=== PATIENT | male | born 1960 | race Hispanic/Latino ===

== ENCOUNTER 2020-01-16 20:57 | Emergency (ER) | payer SELFPAY ==
--- NOTE | 2020-01-16 21:00 | Emergency Department Report ---
Blank Doc - Documentation Documentation: 59-year-old male that presents with urinary difficulty. This initial assessment/diagnostic orders/clinical plan/treatment(s) is/are subject to change based on patient's health status, clinical progression and re- assessment by fellow clinical providers in the ED. Further treatment and workup at subsequent clinical providers discretion. Patient/guardians urged not to elope from the ED as their condition may be serious if not clinically assessed and managed. Initial orders include: 1- Patient sent to MAIN ED for further evaluation and treatment 2- labs 3- UA
[2020-01-16 21:20] LABS: Basophils # (Auto) 0.1 K/mm3 (0.0-0.1); Eosinophils # (Auto) 0.2 K/mm3 (0.0-0.4); Eosinophils % (Auto) 1.2 % (0.0-4.3); Hematocrit 38.5 % (35.5-45.6); Hemoglobin 12.8 gm/dl (11.8-15.2); Lymphocytes # (Auto) 3.6 K/mm3 (1.2-5.4); Lymphocytes % (Auto) 25.5 % (13.4-35.0); Mean Corpuscular HGB Conc 33 % (32-34); Mean Corpuscular Volume 89 fl (84-94); Monocytes # (Auto) 1.1 K/mm3 (0.0-0.8); Monocytes % (Auto) 7.7 % (0.0-7.3); Platelet Count 355 K/mm3 (140-440); Red Blood Count 4.33 M/mm3 (3.65-5.03); Red Cell Distribution Width 14.1 % (13.2-15.2)
[2020-01-16 21:36] LABS: Bacteria,Urine 1+ /HPF (Negative); Bilirubin,Urine NEG (Negative); Blood,Urine NEG (Negative); Color,Urine Straw (Yellow); Mucus,Urine FEW /HPF; Protein,Urine <15 mg/dL mg/dL (Negative); Urobilinogen,Urine < 2.0 mg/dL (<2.0)
[2020-01-16 21:40] VITALS: BP 132/87
[2020-01-16 21:41] LABS: Blood Urea Nitrogen 15 mg/dL (9-20); Calcium 9.5 mg/dL (8.4-10.2); Hemolysis Index 10
[2020-01-16 21:44] LABS: BUN/Creatinine Ratio 21
--- NOTE | 2020-01-16 22:06 | Emergency Department Report ---
ED Male HPI - General Chief complaint: Urogenital-Male Stated complaint: SWOLLEN PROSTATE Time Seen by Provider: 01/16/20 20:59 Source: patient Mode of arrival: Ambulatory Limitations: No Limitations - History of Present Illness Initial comments: CC: "I am pretty sure that I have a urinary tract injection, maybe a swollen prostate." HPI: This is a 59-year-old male with history of diabetes mellitus, hypothyroidism who presents with several weeks of difficulty with urination. He has noticed cloudy malodorous urine as well as sore scrotum and testicles. He is concerned for epididymitis after [employer] web search. He denies fever. Denies back pain. Denies abdominal pain. Denies vomiting. He is able to empty his bladder but with difficulty. He feels that since his diabetes has been uncontrolled for the past 2 years he will be prone to UTI. He has been without insurance for the past 2 years since he lost his job. He formally took metformin Victoza and Synthroid. MD Complaint: testicle pain, testicle swelling, dysuria, other (Malodorous urine difficulty urinating) -: Gradual, week(s) (Several weeks) Location: right testicle, left testicle Radiation: none Severity: mild Quality: aching Consistency: constant Improves with: none Worsens with: urination other (Malodorous urine) - Related Data Previous Rx's Medication Instructions Recorded Last Taken Type Tamsulosin [Flomax] 0.4 mg PO QDAY 30 Days #30 cap 01/16/20 Unknown Rx cephALEXin [Keflex] 500 mg PO Q8HR 10 Days #30 cap 01/16/20 Unknown Rx metFORMIN [Glucophage] 500 mg PO BID 30 Days #60 tablet 01/16/20 Unknown Rx Allergies Allergy/AdvReac Type Severity Reaction Status Date / Time No Known Allergies Allergy Unverified 01/16/20 21:41 ED Review of Systems ROS: Stated complaint: SWOLLEN PROSTATE Other details as noted in HPI Comment: All other systems reviewed and negative Constitutional: denies: chills, fever, malaise Respiratory: denies: cough Cardiovascular: denies: chest pain Gastrointestinal: denies: abdominal pain, nausea, vomiting Genitourinary: urgency, dysuria, frequency, testicular pain ED Past Medical Hx - Past Medical History Previous Medical History?: Yes Hx Diabetes: Yes Additional medical history: Thyroid disease - Social History Smoking Status: Never Smoker Substance Use Type: None - Medications Home Medications: Home Medications Medication Instructions Recorded Confirmed Last Taken Type Tamsulosin [Flomax] 0.4 mg PO QDAY 30 Days #30 cap 01/16/20 Unknown Rx cephALEXin [Keflex] 500 mg PO Q8HR 10 Days #30 cap 01/16/20 Unknown Rx metFORMIN [Glucophage] 500 mg PO BID 30 Days #60 tablet 01/16/20 Unknown Rx ED Physical Exam - General Limitations: No Limitations General appearance: alert, in no apparent distress - Head Head exam: Present: atraumatic, normocephalic - Eye Eye exam: Present: normal appearance - ENT ENT exam: Present: mucous membranes moist - Neck Neck exam: Present: normal inspection, full ROM - Respiratory Respiratory exam: Present: normal lung sounds bilaterally. Absent: respiratory distress, wheezes, rales, rhonchi - Cardiovascular Cardiovascular Exam: Present: regular rate, normal rhythm, normal heart sounds. Absent: systolic murmur, diastolic murmur, rubs, gallop - GI/Abdominal GI/Abdominal exam: Present: soft, normal bowel sounds. Absent: distended, tenderness, guarding, rebound - exam: Present: other (Deferred according to patient's discretion) - Extremities Exam Extremities exam: Present: normal inspection - Back Exam Back exam: Present: normal inspection - Neurological Exam Neurological exam: Present: alert, oriented X3 - Psychiatric Psychiatric exam: Present: normal affect, normal mood - Skin Skin exam: Present: warm, dry, intact, normal color. Absent: rash ED Course Vital Signs 01/16/20 01/16/20 21:18 21:38 Temperature 97.8 F 99.1 F Pulse Rate 83 67 Respiratory 18 16 Rate Blood Pressure 140/87 132/87 [Right] O2 Sat by Pulse 96 99 Oximetry ED Medical Decision Making - Lab Data Result diagrams: 01/16/20 21:05 01/16/20 21:05 Laboratory Results - last 24 hr 01/16/20 01/16/20 01/16/20 21:05 21:05 21:14 WBC 14.1 H RBC 4.33 Hgb 12.8 Hct 38.5 MCV 89 MCH 30 MCHC 33 RDW 14.1 Plt Count 355 Lymph % (Auto) 25.5 [place] % (Auto) 7.7 H Eos % (Auto) 1.2 Baso % (Auto) 1.0 Lymph # 3.6 [place] # 1.1 H Eos # 0.2 Baso # 0.1 Seg Neutrophils % 64.6 Seg Neutrophils # 9.1 H Sodium 128 L Potassium 4.1 Chloride 88.1 L Carbon Dioxide 22 Anion Gap 22 BUN 15 Creatinine 0.7 L Estimated GFR > 60 BUN/Creatinine Ratio 21 Glucose 562 H* Calcium 9.5 Urine Color Straw Urine Turbidity Slightly-cloudy Urine pH 5.0 Ur Specific [place] 1.027 Urine Protein <15 mg/dl Urine Glucose (UA) >=500 Urine Ketones Neg Urine Blood Neg Urine Nitrite Neg Urine Bilirubin Neg Urine Urobilinogen < 2.0 Ur Leukocyte Esterase Mod Urine WBC (Auto) 81.0 H Urine RBC (Auto) 7.0 U Epithel Cells (Auto) < 1.0 Urine Bacteria (Auto) 1+ Urine Mucus Few - Medical Decision Making Mr. Mendosa presents with testicular pain and swelling as well as malodorous urine. He has had urinary hesitation for several weeks. Differential diagnosis includes prostatitis epididymitis, Diagnosis: complicated UTI Patient declined further treatment for acute hyperglycemia and epididymitis such as IV fluid, bladder scan and scrotal ultrasound. He stated that considering his lack of healthcare insurance he wanted conservative therapy. He has nontoxic. I do not suspect sepsis. I do not suspect acute urinary retention. No evidence of DKA. Patient appears well. He will be prescribed cephalexin for the next 10 days. Also prescribed Flomax and metformin. Critical care attestation.: If time is entered above; I have spent that time in minutes in the direct care of this critically ill patient, excluding procedure time. ED Disposition Clinical Impression: Complicated UTI (urinary tract infection), Acute hyperglycemia Disposition: DC-01 TO HOME OR SELFCARE Is pt being admited?: No Does the pt Need Aspirin: No Condition: Stable Instructions: Epididymitis (ED) Prescriptions: Tamsulosin [Flomax] 0.4 mg PO QDAY 30 Days #30 cap metFORMIN [Glucophage] 500 mg PO BID 30 Days #60 tablet cephALEXin [Keflex] 500 mg PO Q8HR 10 Days #30 cap Referrals: ROSALIA BORRERO MD [Staff Physician] - 3-5 Days
== END 2020-01-16 22:46 | disposition home or self-care (01) ==
LOC: ED 20:57
DX: N39.0 Urinary tract infection, site not specified (principal); E11.65 Type 2 diabetes mellitus with hyperglycemia; Z79.899 Other long term (current) drug therapy
CPT/HCPCS: 36415; 80048; 81001; 85025; 87076; 87086; 87186; 99283

== ENCOUNTER 2020-01-26 02:06 | Emergency (ER) | payer SELFPAY ==
[2020-01-26 03:05] LABS: Bacteria,Urine 1+ /HPF (Negative); Bilirubin,Urine NEG (Negative); Blood,Urine LG (Negative); Color,Urine Amber (Yellow); Mucus,Urine FEW /HPF; Protein,Urine <15 mg/dL mg/dL (Negative)
[2020-01-26 03:06] LABS: RBC,Urine > 182.0 /HPF (0.0-6.0)
[2020-01-26] MEDS ORDERED: SODIUM CHLORIDE 0.9% 1000 ML 1,000 ML IV ONE (03:58)
[2020-01-26] MEDS ORDERED: cefTRIAXone/NS 1 GM/50 ML 1 GM/50 ML BAG IV ONE (03:58)
[2020-01-26 03:59] VITALS: BP 108/57
[2020-01-26] MEDS ORDERED: KETOROLAC 30 MG/1 ML INJ IV ONE (04:25)
[2020-01-26] MEDS ORDERED: KETOROLAC 30 MG/1 ML INJ ONE (04:27)
[2020-01-26 04:36] LABS: Basophils # (Auto) 0.1 K/mm3 (0.0-0.1); Basophils % (Auto) 0.5 % (0.0-1.8); Eosinophils # (Auto) 0.3 K/mm3 (0.0-0.4); Eosinophils % (Auto) 2.2 % (0.0-4.3); Hematocrit 37.1 % (35.5-45.6); Hemoglobin 11.9 gm/dl (11.8-15.2); Lymphocytes # (Auto) 2.2 K/mm3 (1.2-5.4); Lymphocytes % (Auto) 16.9 % (13.4-35.0); Mean Corpuscular HGB Conc 32 % (32-34); Mean Corpuscular Volume 89 fl (84-94); Monocytes # (Auto) 1.1 K/mm3 (0.0-0.8); Monocytes % (Auto) 8.1 % (0.0-7.3); Platelet Count 352 K/mm3 (140-440); Red Blood Count 4.19 M/mm3 (3.65-5.03)
[2020-01-26 04:55] LABS: Alanine Aminotransferase 14 units/L (7-56); Albumin 3.7 g/dL (3.9-5); Blood Urea Nitrogen 8 mg/dL (9-20); Calcium 9.3 mg/dL (8.4-10.2); Hemolysis Index 2
--- NOTE | 2020-01-26 04:59 | Cat Scan Report ---
CT abdomen pelvis wo con INDICATION: Flank pain. TECHNIQUE: All CT scans at this location are performed using the following dose modulation technique: Automated exposure control. CONTRAST: None. COMPARISON: None available. CT ABDOMEN: The parenchymal organs are unremarkable in appearance. Negative for abdominal mass, fluid or inflammation. The bowel is not dilated or thickened. Moderate elevation is seen at the right mel[place] diaphragm. CT PELVIS: Negative for distal ureteral stone, pelvic fluid collection or inflammation. The appendix is normal. Irregular enlargement is seen at the inferior prostate. A small node is seen at the right external il iac chain with a maximal short axis diameter of 7 mm. No suspicious bony lesion. IMPRESSION: 1. Negative for renal stone or obstruction. 2. Irregular enlargement of the prostate was small right pelvic node. Signer Name: Luis Wiseman MD Signed: 01/26/2020 4:55 AM Workstation Name: [id number]
--- NOTE | 2020-01-26 05:18 | Emergency Department Report ---
ED General Adult HPI - General Chief complaint: Rectal Pain Stated complaint: RECTAL PAIN Source: patient Mode of arrival: Ambulatory Limitations: No Limitations - History of Present Illness Initial comments: This is a 59-year-old male with history of diabetes mellitus, hypothyroidism , recent dx of complicated UTI, who is finishing keflex and flomax po for past week, who presents with rectal pain and pressure. He denies melena, no fever no chills, he is tolerating po , and making normal stools, pt is on metformin for DMII but has not taken it in the past year. He adamant that he will not agree to admission for any reason, he states medication only. pt also denies dysuria, frequency, or urgency. Pt is voiding without difficulty. Denies back pain. Denies abdominal pain. Denies vomiting. He is able to empty his bladder but with difficulty. pain is currently at level 3/10 soreness. Pt has not followed up with pcp. Onset/Timin -: week(s) Location: pelvis Severity scale (0 -10): 3 Quality: aching Consistency: intermittent Improves with: none Worsens with: none Associated Symptoms: denies: fever/chills, nausea/vomiting Treatments Prior to Arrival: none - Related Data Previous Rx's Medication Instructions Recorded Last Taken Type Tamsulosin [Flomax] 0.4 mg PO QDAY 30 Days #30 cap 01/16/20 Unknown Rx cephALEXin [Keflex] 500 mg PO Q8HR 10 Days #30 cap 01/16/20 Unknown Rx metFORMIN [Glucophage] 500 mg PO BID 30 Days #60 tablet 01/16/20 Unknown Rx levoFLOXacin [Levaquin TAB] 500 mg PO QDAY #7 tablet 01/26/20 Unknown Rx traMADoL [Ultram] 50 mg PO Q6HR PRN #12 tablet 01/26/20 Unknown Rx Allergies Allergy/AdvReac Type Severity Reaction Status Date / Time No Known Allergies Allergy Verified 01/26/20 04:27 ED Review of Systems ROS: Stated complaint: RECTAL PAIN Other details as noted in HPI Constitutional: denies: chills, fever Eyes: denies: eye pain, eye discharge, vision change ENT: denies: ear pain, throat pain Respiratory: denies: cough, shortness of breath, wheezing Cardiovascular: denies: chest pain, palpitations Endocrine: no symptoms reported Gastrointestinal: other (pelvic pain ). denies: abdominal pain, nausea, vomiting, diarrhea, constipation, melena Genitourinary: denies: urgency, dysuria, frequency, hematuria, discharge, testicular pain, testicular mass Musculoskeletal: denies: back pain, joint swelling, arthralgia Skin: denies: rash, lesions Neurological: denies: headache, weakness, paresthesias Psychiatric: denies: anxiety, depression Hematological/Lymphatic: denies: easy bleeding, easy bruising ED Past Medical Hx - Past Medical History Previous Medical History?: Yes Hx Diabetes: Yes Additional medical history: Thyroid disease - Surgical History Past Surgical History?: No - Social History Smoking Status: Never Smoker Substance Use Type: None - Medications Home Medications: Home Medications Medication Instructions Recorded Confirmed Last Taken Type Tamsulosin [Flomax] 0.4 mg PO QDAY 30 Days #30 cap 01/16/20 Unknown Rx cephALEXin [Keflex] 500 mg PO Q8HR 10 Days #30 cap 01/16/20 Unknown Rx metFORMIN [Glucophage] 500 mg PO BID 30 Days #60 tablet 01/16/20 Unknown Rx levoFLOXacin [Levaquin TAB] 500 mg PO QDAY #7 tablet 01/26/20 Unknown Rx traMADoL [Ultram] 50 mg PO Q6HR PRN #12 tablet 01/26/20 Unknown Rx ED Physical Exam - General Limitations: No Limitations General appearance: alert, in no apparent distress - Head Head exam: Present: atraumatic, normocephalic - Eye Eye exam: Present: normal appearance - ENT ENT exam: Present: mucous membranes moist - Neck Neck exam: Present: normal inspection - Respiratory Respiratory exam: Present: normal lung sounds bilaterally. Absent: respiratory distress, wheezes, stridor - Cardiovascular Cardiovascular Exam: Present: regular rate, normal rhythm, normal heart sounds. Absent: systolic murmur, diastolic murmur, rubs, gallop - GI/Abdominal GI/Abdominal exam: Present: soft, normal bowel sounds. Absent: distended, tenderness, guarding, rebound, rigid, bruit, hernia - Rectal Rectal exam: Present: deferred - Extremities Exam Extremities exam: Present: normal inspection - Back Exam Back exam: Present: normal inspection, full ROM. Absent: tenderness, CVA tenderness (R), CVA tenderness (L) - Neurological Exam Neurological exam: Present: alert, oriented X3, CN II-XII intact, normal gait, reflexes normal. Absent: motor sensory deficit - Psychiatric Psychiatric exam: Present: normal affect, normal mood - Skin Skin exam: Present: warm, dry, intact, normal color. Absent: rash ED Course Vital Signs 01/26/20 01/26/20 02:23 03:58 Temperature 98.3 F 98.3 F Pulse Rate 71 54 L Respiratory 18 16 Rate Blood Pressure 123/69 Blood Pressure 108/57 [Left] O2 Sat by Pulse 97 98 Oximetry ED Medical Decision Making - Lab Data Result diagrams: 01/26/20 04:21 01/26/20 04:21 - Radiology Data Radiology results: report reviewed, image reviewed Findings Reporting MD: Luis Wiseman Dictation Time: January 26, 2020 03:55 Garment Finisher: Not available Train Dispatcher Date: CT abdomen pelvis wo con INDICATION: Flank pain. TECHNIQUE: All CT scans at this location are performed using the following dose modulation technique: Automated exposure control. CONTRAST: None. COMPARISON: None available. CT ABDOMEN: The parenchymal organs are unremarkable in appearance. Negative for abdominal mass, fluid or inflammation. The bowel is not dilated or thickened. Moderate elevation is seen at the right hemidiaphragm. CT PELVIS: Negative for distal ureteral stone, pelvic fluid collection or inflammation. The appendix is normal. Irregular enlargement is seen at the inferior prostate. A small node is seen at the right external iliac chain with a maximal short axis diameter of 7 mm. No suspicious bony lesion. IMPRESSION: 1. Negative for renal stone or obstruction. 2. Irregular enlargement of the prostate was small right pelvic node. Signer Name: Luis Wiseman MD Signed: 01/26/2020 3:55 AM Workstation Name: [id number] - Medical Decision Making CT abdomen and pelvis no mass no stones no obstruction, mildly irregular prostate, UA positive for leukocytes, WBCs, RBCs. Symptoms are improved after Rocephin IV given in ED, normal saline 1 L IV, blood sugar is improved. Plan DC with prescription for Levaquin for treatment of prostatitis, complicated UTI, patient given referral to urology, will complete Flomax and follow-up with urology in 2 to 3 days. Patient is currently voiding without difficulty there is no nausea vomiting there is no diarrhea there is no rectal bleeding no melena, patient declined prostate exam, noted culture and sensitivity from 01/16/2020 bacteria is Levaquin sensitive. Patient DC to home in stable condition at this time Critical care attestation.: If time is entered above; I have spent that time in minutes in the direct care of this critically ill patient, excluding procedure time. ED Disposition Clinical Impression: Complicated UTI (urinary tract infection) Prostatitis Qualifiers: Prostatitis type: unspecified Qualified Code(s): N41.9 - Inflammatory disease of prostate, unspecified Disposition: DC-01 TO HOME OR SELFCARE Is pt being admited?: No Does the pt Need Aspirin: No Condition: Stable Instructions: Prostatitis (ED), Urinary Tract Infection in Men (ED) Prescriptions: levoFLOXacin [Levaquin TAB] 500 mg PO QDAY #7 tablet traMADoL [Ultram] 50 mg PO Q6HR PRN #12 tablet PRN Reason: Pain Referrals: ROSANNA MARMOLEJO MD [Staff Physician] - 3-5 Days Forms: Work/School Release Form(ED)
[2020-01-26 05:43] LABS: BUN/Creatinine Ratio 11
== END 2020-01-26 05:45 | disposition home or self-care (01) ==
LOC: ED 02:06
DX: N41.9 Inflammatory disease of prostate, unspecified (principal); N39.0 Urinary tract infection, site not specified; E03.9 Hypothyroidism, unspecified; E11.9 Type 2 diabetes mellitus without complications; Z79.899 Other long term (current) drug therapy
CPT/HCPCS: 36415; 74176; 80053; 81001; 82140; 85025; 87040; 87086; 96365; 96375; 99284; J0696; J1885; J7030

== ENCOUNTER 2020-07-27 15:12 | Emergency (ER) | payer BC ==
--- NOTE | 2020-07-27 15:45 | Event Note ---
ED Screening Note Date of service: 07/27/20 Time: 15:44 ED Screening Note: Patient complains of abdominal pain, chest pain, shortness of breath x8 months Patient states he has seen multiple specialist and is scheduled to see a GI specialist in 1 month, however he cannot wait to see them because his symptoms are worsening States history of elevated liver enzymes This initial assessment/diagnostic orders/clinical plan/treatment(s) is/are subject to change based on patients health status, clinical progression and re- assessment by fellow clinical providers in the ED. Further treatment and workup at subsequent clinical providers discretion. Patient/guardian urged not to elope from the ED as their condition may be serious if not clinically assessed and managed. Initial orders include: Labs EKG Chest x-ray
[2020-07-27 16:10] LABS: Basophils # (Auto) 0.1 K/mm3 (0.0-0.1); Basophils % (Auto) 1.1 % (0.0-1.8); Eosinophils # (Auto) 0.2 K/mm3 (0.0-0.4); Eosinophils % (Auto) 1.9 % (0.0-4.3); Hematocrit 40.7 % (35.5-45.6); Hemoglobin 14.2 gm/dl (11.8-15.2); Lymphocytes # (Auto) 3.3 K/mm3 (1.2-5.4); Lymphocytes % (Auto) 39.3 % (13.4-35.0); Mean Corpuscular HGB Conc 35 % (32-34); Mean Corpuscular Volume 89 fl (84-94); Monocytes # (Auto) 0.6 K/mm3 (0.0-0.8); Monocytes % (Auto) 7.7 % (0.0-7.3); Platelet Count 334 K/mm3 (140-440); Red Blood Count 4.57 M/mm3 (3.65-5.03); Red Cell Distribution Width 13.9 % (13.2-15.2)
--- NOTE | 2020-07-27 16:19 | XRay Report ---
CHEST 2 VIEWS INDICATION / CLINICAL INFORMATION: Chest pain/shortness of breath. Abdominal pain for 8 months. COMPARISON: None available. FINDINGS: SUPPORT DEVICES: None. HEART / MEDIASTINUM: The heart size and pulmonary vasculature are normal. LUNGS / PLEURA: No significant pulmonary or pleural abnormality. No pneumothorax. ADDITIONAL FINDINGS: There is mild thoracolumbar scoliosis. There is a left nipple piercing. The visu alized upper abdomen is unremarkable. IMPRESSION: No acute findings. Signer Name: Favian Magallon MD Signed: 07/27/2020 4:14 PM Workstation Name: [id number]
[2020-07-27 16:25] LABS: Alanine Aminotransferase 23 units/L (7-56); Albumin 4.3 g/dL (3.9-5); Blood Urea Nitrogen 16 mg/dL (9-20); Calcium 9.9 mg/dL (8.4-10.2); Hemolysis Index 2
[2020-07-27 16:27] LABS: BUN/Creatinine Ratio 23
[2020-07-27 16:42] LABS: Bilirubin,Urine NEG (Negative); Blood,Urine NEG (Negative); Color,Urine Yellow (Yellow); Hyaline Casts,Urine 3 /LPF; Mucus,Urine FEW /HPF; Protein,Urine <15 mg/dL mg/dL (Negative)
[2020-07-27] MEDS ORDERED: SODIUM CHLORIDE 0.9% 1000 ML 1,000 ML IV ONE (22:09)
[2020-07-27] MEDS ORDERED: ONDANSETRON 4 MG/2 ML INJ IV ONE (22:09)
--- NOTE | 2020-07-27 23:21 | Cat Scan Report ---
CT abdomen pelvis w con INDICATION: Patient complains of L.L.Q. abdominal pain. COMPARISON: 01/26/2020 TECHNIQUE: Abdominal and pelvic CT exam performed. All CT scans at this location are performed using CT dose reduction for ALARA by means of automated exposure control. FINDINGS: CT ABDOMEN and PELVIS: Lung Bases: No significant abnormality. Liver: No significant abnormality. Biliary: No significant abnormality. Spleen: No significant abnormality. Pancreas: No significant abnormality. Adrenals: No significant abnormality. Kidneys: No significant abnormality. Lymphatics: No lymphadenopathy. Vasculature: Mild aortic atherosclerosis. No aneurysm. Bowel: No significant abnormality. Normal appendix. Pelvis: Prostate appears unchanged.. Osseous Structures: No aggressive osseous lesion. Mild rightward curvature of the spine. 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 Additional Findings: None IMPRESSION: 1. No of acute abnormality of the abdomen or pelvis. Signer Name: Reed Mcgee MD Signed: 07/27/2020 11:16 PM Workstation Name: [id number]
--- NOTE | 2020-07-27 23:47 | Emergency Department Report ---
ED General Adult HPI - General Chief complaint: Abdominal Pain Stated complaint: abd PAINS Time Seen by Provider: 07/27/20 15:43 Source: patient Mode of arrival: Ambulatory Limitations: No Limitations - History of Present Illness Initial comments: The patient presents to the emergency department the chief complaint of abdominal pain has been present for the last 8 months but has become worse over the last 1 day. Patient describes the pain is sharp in nature and states that he has had nausea but no vomiting. Patient states he has an appointment with his GI doctor in 1 month. Patient denies any prior abdominal surgeries. Patient has no chest pain, shortness breath, or headache -: month(s) Location: abdomen Radiation: non-radiation Severity scale (0 -10): 6 Quality: sharp Consistency: constant Improves with: none Worsens with: none Associated Symptoms: denies other symptoms Treatments Prior to Arrival: none - Related Data Previous Rx's Medication Instructions Recorded Last Taken Type Tamsulosin [Flomax] 0.4 mg PO QDAY 30 Days #30 cap 01/16/20 Unknown Rx cephALEXin [Keflex] 500 mg PO Q8HR 10 Days #30 cap 01/16/20 Unknown Rx metFORMIN [Glucophage] 500 mg PO BID 30 Days #60 tablet 01/16/20 Unknown Rx levoFLOXacin [Levaquin TAB] 500 mg PO QDAY #7 tablet 01/26/20 Unknown Rx traMADoL [Ultram] 50 mg PO Q6HR PRN #12 tablet 01/26/20 Unknown Rx HYDROcodone/APAP 5-325 [[place] 1 each PO Q6HR PRN #12 tablet 07/28/20 Unknown Rx 5/325] Ondansetron [Zofran Odt] 4 mg PO Q4HR PRN #20 tab.rapdis 07/28/20 Unknown Rx Allergies Allergy/AdvReac Type Severity Reaction Status Date / Time No Known Allergies Allergy Verified 07/27/20 15:42 ED Review of Systems ROS: Stated complaint: abd PAINS Other details as noted in HPI Comment: All other systems reviewed and negative Constitutional: denies: chills, fever Eyes: denies: eye pain, eye discharge, vision change ENT: denies: ear pain, throat pain Respiratory: denies: cough, shortness of breath, wheezing Cardiovascular: denies: chest pain, palpitations Endocrine: no symptoms reported Gastrointestinal: abdominal pain. denies: nausea, diarrhea Genitourinary: denies: urgency, dysuria Musculoskeletal: denies: back pain, joint swelling, arthralgia Skin: denies: rash, lesions Neurological: denies: headache, weakness, paresthesias Psychiatric: denies: anxiety, depression Hematological/Lymphatic: denies: easy bleeding, easy bruising ED Past Medical Hx - Past Medical History Hx Diabetes: Yes Additional medical history: Thyroid disease - Social History Smoking Status: Never Smoker Substance Use Type: None - Medications Home Medications: Home Medications Medication Instructions Recorded Confirmed Last Taken Type Tamsulosin [Flomax] 0.4 mg PO QDAY 30 Days #30 cap 01/16/20 Unknown Rx cephALEXin [Keflex] 500 mg PO Q8HR 10 Days #30 cap 01/16/20 Unknown Rx metFORMIN [Glucophage] 500 mg PO BID 30 Days #60 tablet 01/16/20 Unknown Rx levoFLOXacin [Levaquin TAB] 500 mg PO QDAY #7 tablet 01/26/20 Unknown Rx traMADoL [Ultram] 50 mg PO Q6HR PRN #12 tablet 01/26/20 Unknown Rx HYDROcodone/APAP 5-325 [[place] 1 each PO Q6HR PRN #12 tablet 07/28/20 Unknown Rx 5/325] Ondansetron [Zofran Odt] 4 mg PO Q4HR PRN #20 tab.rapdis 07/28/20 Unknown Rx ED Physical Exam - General Limitations: No Limitations General appearance: alert, in no apparent distress - Head Head exam: Present: atraumatic, normocephalic - Eye Eye exam: Present: normal appearance, PERRL - ENT ENT exam: Present: mucous membranes moist - Neck Neck exam: Present: normal inspection - Respiratory Respiratory exam: Present: normal lung sounds bilaterally. Absent: respiratory distress - Cardiovascular Cardiovascular Exam: Present: regular rate, normal rhythm. Absent: systolic murmur, diastolic murmur, rubs, gallop - GI/Abdominal GI/Abdominal exam: Present: soft, tenderness (Diffusely tender but more exquisitely tender in the left lower quadrant), normal bowel sounds. Absent: distended - Rectal Rectal exam: Present: deferred - Extremities Exam Extremities exam: Present: normal inspection - Back Exam Back exam: Present: normal inspection - Neurological Exam Neurological exam: Present: alert, oriented X3, CN II-XII intact. Absent: motor sensory deficit - Psychiatric Psychiatric exam: Present: normal affect, normal mood - Skin Skin exam: Present: warm, dry, intact, normal color. Absent: rash ED Course Vital Signs 07/27/20 07/27/20 07/27/20 15:42 23:12 23:15 Temperature 97.8 F Pulse Rate 98 H 70 68 Respiratory 24 12 10 L Rate Blood Pressure 114/85 121/85 O2 Sat by Pulse 98 100 100 Oximetry ED Medical Decision Making - Lab Data Result diagrams: 07/27/20 15:51 07/27/20 15:51 Lab Results 07/27/20 07/27/20 07/27/20 Range/Units 15:51 15:51 15:51 WBC 8.3 (4.5-11.0) K/mm3 RBC 4.57 (3.65-5.03) M/mm3 Hgb 14.2 (11.8-15.2) gm/dl Hct 40.7 (35.5-45.6) % MCV 89 (84-94) fl MCH 31 (28-32) pg MCHC 35 H (32-34) % RDW 13.9 (13.2-15.2) % Plt Count 334 (140-440) K/mm3 Lymph % (Auto) 39.3 H (13.4-35.0) % [place] % (Auto) 7.7 H (0.0-7.3) % Eos % (Auto) 1.9 (0.0-4.3) % Baso % (Auto) 1.1 (0.0-1.8) % Lymph # (Auto) 3.3 (1.2-5.4) K/mm3 [place] # (Auto) 0.6 (0.0-0.8) K/mm3 Eos # (Auto) 0.2 (0.0-0.4) K/mm3 Baso # (Auto) 0.1 (0.0-0.1) K/mm3 Seg Neutrophils % 50.0 (40.0-70.0) % Seg Neutrophils # 4.2 (1.8-7.7) K/mm3 Sodium 135 L (137-145) mmol/L Potassium 4.6 (3.6-5.0) mmol/L Chloride 94.8 L (98-107) mmol/L Carbon Dioxide 29 (22-30) mmol/L Anion Gap 16 mmol/L BUN 16 (9-20) mg/dL Creatinine 0.7 L (0.8-1.3) mg/dL Estimated GFR > 60 ml/min BUN/Creatinine Ratio 23 % Glucose 226 H (75-100) mg/dL Calcium 9.9 (8.4-10.2) mg/dL Total Bilirubin 0.60 (0.1-1.2) mg/dL AST 23 (5-40) units/L ALT 23 (7-56) units/L Alkaline Phosphatase 155 H (35-129) units/L Troponin T < 0.010 (0.00-0.029) ng/mL NT-Pro-B Natriuret Pep 27.99 (0-900) pg/mL Total Protein 7.6 (6.3-8.2) g/dL Albumin 4.3 (3.9-5) g/dL Albumin/Globulin Ratio 1.3 % Lipase 82 H (13-60) units/L Urine Color (Yellow) Urine Turbidity (Clear) Urine pH (5.0-7.0) Ur Specific [place] (1.003-1.030) Urine Protein (Negative) mg/dL Urine Glucose (UA) (Negative) mg/dL Urine Ketones (Negative) mg/dL Urine Blood (Negative) Urine Nitrite (Negative) Urine Bilirubin (Negative) Urine Urobilinogen (<2.0) mg/dL Ur Leukocyte Esterase (Negative) Urine WBC (Auto) (0.0-6.0) /HPF Urine RBC (Auto) (0.0-6.0) /HPF U Epithel Cells (Auto) (0-13.0) /HPF Hyaline Casts /LPF Urine Mucus /HPF 07/27/20 07/27/20 Range/Units 19:26 Unknown WBC (4.5-11.0) K/mm3 RBC (3.65-5.03) M/mm3 Hgb (11.8-15.2) gm/dl Hct (35.5-45.6) % MCV (84-94) fl MCH (28-32) pg MCHC (32-34) % RDW (13.2-15.2) % Plt Count (140-440) K/mm3 Lymph % (Auto) (13.4-35.0) % [place] % (Auto) (0.0-7.3) % Eos % (Auto) (0.0-4.3) % Baso % (Auto) (0.0-1.8) % Lymph # (Auto) (1.2-5.4) K/mm3 [place] # (Auto) (0.0-0.8) K/mm3 Eos # (Auto) (0.0-0.4) K/mm3 Baso # (Auto) (0.0-0.1) K/mm3 Seg Neutrophils % (40.0-70.0) % Seg Neutrophils # (1.8-7.7) K/mm3 Sodium (137-145) mmol/L Potassium (3.6-5.0) mmol/L Chloride (98-107) mmol/L Carbon Dioxide (22-30) mmol/L Anion Gap mmol/L BUN (9-20) mg/dL Creatinine (0.8-1.3) mg/dL Estimated GFR ml/min BUN/Creatinine Ratio % Glucose (75-100) mg/dL Calcium (8.4-10.2) mg/dL Total Bilirubin (0.1-1.2) mg/dL AST (5-40) units/L ALT (7-56) units/L Alkaline Phosphatase (35-129) units/L Troponin T < 0.010 (0.00-0.029) ng/mL NT-Pro-B Natriuret Pep (0-900) pg/mL Total Protein (6.3-8.2) g/dL Albumin (3.9-5) g/dL Albumin/Globulin Ratio % Lipase (13-60) units/L Urine Color Yellow (Yellow) Urine Turbidity Clear (Clear) Urine pH 5.0 (5.0-7.0) Ur Specific [place] 1.016 (1.003-1.030) Urine Protein <15 mg/dl (Negative) mg/dL Urine Glucose (UA) 50 (Negative) mg/dL Urine Ketones Neg (Negative) mg/dL Urine Blood Neg (Negative) Urine Nitrite Neg (Negative) Urine Bilirubin Neg (Negative) Urine Urobilinogen 2.0 (<2.0) mg/dL Ur Leukocyte Esterase Neg (Negative) Urine WBC (Auto) 3.0 (0.0-6.0) /HPF Urine RBC (Auto) 2.0 (0.0-6.0) /HPF U Epithel Cells (Auto) < 1.0 (0-13.0) /HPF Hyaline Casts 3 /LPF Urine Mucus Few /HPF - Radiology Data Radiology results: report reviewed - Medical Decision Making Discussed results with patient Critical care attestation.: If time is entered above; I have spent that time in minutes in the direct care of this critically ill patient, excluding procedure time. ED Disposition Clinical Impression: Abdominal pain Disposition: DC-01 TO HOME OR SELFCARE Is pt being admited?: No Does the pt Need Aspirin: No Condition: Stable Instructions: Abdominal Pain, Adult Additional Instructions: Return if worse Referrals: ANDRE PITTMAN MD [Primary Care Provider] - 3-5 Days Time of Disposition: 00:18
[2020-07-28 00:38] VITALS: BP 130/81
--- NOTE | 2020-07-28 09:48 | Electrocardiograph Report ---
[facility] Test Date: 2020-07-27 Test Time: 15:54:14 Pat Name: NAYLA MORALES Department: Room: Gender: M [employer]: : 1960 Requested By: TRELL PATTERSON Order Number: [id number] Reading MD: Jordan Roberts Measurements Intervals [place] Rate: 75 P: 63 AK: 173 QRS: -27 QRSD: 86 T: 63 QT: 373 QTc: 417 Interpretive Statements Sinus rhythm No previous ECG available for comparison Electronically Signed On 07-28-2020 6:48:26 PDT by Jordan Roberts
== END 2020-07-28 00:50 | disposition home or self-care (01) ==
LOC: ED 15:12
DX: R10.32 Left lower quadrant pain (principal); R11.0 Nausea; E11.9 Type 2 diabetes mellitus without complications; Z79.84 Long term (current) use of oral hypoglycemic drugs; Z79.899 Other long term (current) drug therapy
CPT/HCPCS: 36415; 71046; 74177; 80053; 81001; 83690; 83880; 84484; 85025; 93005; 96361; 96374; 99284; J2405; J7030; Q9967